=== PATIENT | female | born 1970 | race Caucasian/White ===

== ENCOUNTER 2019-01-29 12:55 | Inpatient (IN) | payer OTHER ==
[~2019-01-29] VITALS: Ht 165.1 cm; Wt 94.8 kg
--- NOTE | 2019-01-29 13:02 | NUR ---
JILL BLANTON FOR SI - PT WAS SPEAKING WITH COWORKER TODAY AND THREATENED SA - CUTTING WRISTS, PT HAS SCRATCH OBRIEN ON HER WRISTS, COWORKER CALLED POLICE, HX OF SA - OD PILLS, DEPRESSION, ANXIETY. 4L BOX OF WINE FOUND AT PTS HOUSE WITH KNIFE. PT STATES SHE DRANK "A LOT OF IT" PT DENIES SI AT THIS TIME, SAYS SHE THINKS ABOUT KILLING HERSELF A LOT AND WOULD "JUST BLEED" BUT WOULD NEVER "ACTUALLY DO IT BECAUSE I HAVE TWO BEAUTIFUL CHILDREN". PT TEARFUL, STATES "I CAN'T DO THIS, I CAN'T STAY HERE, I'M LEAVING", PT EDUCATED ON SI HOLD PROTOCOL. PT SUICIDE RISK ASSESSMENT REQUIRES 1:1 OBS AT THIS TIME, BA 0.18, UDS COLLECTED AND SENT TO LAB
--- NOTE | 2019-01-29 13:15 | NUR ---
CALLED GAMMA OPERATOR'S OFFICE AND REQUESTED A SITTER FOR PATIENT SAFETY.
[2019-01-29 13:25] LABS: BASOPHILS # (AUTO) 0.12 x10^3/uL (0-0.1); BASOPHILS % (AUTO) 2 % (0-1); EOSINOPHILS # (AUTO) 0.04 x10^3/uL (0-0.4); EOSINOPHILS % (AUTO) 1 % (1-7); LYMPHOCYTES # (AUTO) 1.97 x10^3/uL (1-3.4); LYMPHOCYTES % (AUTO) 27 % (22-44); MD NO; MEAN CORPUSCULAR HEMOGLOBIN 32.7 pg (27.0-34.8); MEAN CORPUSCULAR HGB CONC 34.5 g/dL (32.4-35.8); MEAN CORPUSCULAR VOLUME 94.8 fL (80-100); MEAN PLATELET VOLUME 7.7 fL (7.4-10.4); MONOCYTES # (AUTO) 0.64 x10^3/uL (0.2-0.8); MONOCYTES % (AUTO) 9 % (2-9); NEUTROPHILS # (AUTO) 4.59 x10^3/uL (1.8-6.8); NEUTROPHILS % (AUTO) 62 % (42-75); PLATELET COUNT 375 x10^3/uL (130-400); RED BLOOD COUNT 4.82 x10^6/uL (3.82-5.3)
[2019-01-29 13:34] LABS: ANION GAP 8 mmol/L (5-15); CALCIUM 8.8 mg/dL (8.5-10.1); CHLORIDE 105 mmol/L (98-107)
[2019-01-29 13:40] LABS: CREATININE 0.93 mg/dL (0.55-1.02)
[2019-01-29 13:44] LABS: ACETAMINOPHEN < 2 mcg/mL (10-30); SALICYLATE LEVEL < 1.7 mg/dL (2.8-20.0)
[2019-01-29 14:04] LABS: AMPHETAMINE SCREEN, URINE Negative (Negative); BARBITURATE SCREEN, URINE Negative (Negative); BENZODIAZEPINE SCREEN, URINE Negative (Negative); CANNABINOID SCREEN, URINE Positive (Negative); COCAINE SCREEN, URINE Negative (Negative); METHADONE SCREEN, URINE Negative (Negative); OPIATE SCREEN, URINE Negative (Negative)
--- NOTE | 2019-01-29 14:15 | NUR ---
PT IN BED, ALL BELONGINGS SECURED, NAD, SITTER AT BEDSIDE, AWAITING DISPO. WCTM.
--- NOTE | 2019-01-29 15:15 | NUR ---
PT IN GURNEY, TEARFUL, SITTER AT DOORWAY. NAD. PT ON SPO2 MONITOR. AWAITING PT SOBRIETY AND TELEPSYCH EVAL
[2019-01-29] MEDS ORDERED: LORazepam 1MG TABLET ONE ×2 (15:24→18:28)
--- NOTE | 2019-01-29 16:02 | NUR ---
PT IN [facility], TEARFUL, FIDGETY AND REMOVING MONITORS, YELLING TO CALL MOM. OBTAINED PTS PHONE AND PT CALLED MOTHER AND SO. EXPLAINED POC AGAIN TO PT, PT NEED TO HAVE ANANDA OF <0.08 AND TELEPSYCH EVAL. MD TO ORDER ATIVAN PO FOR PT ANXIETY. SITTER AT DOORWAY. RN SPOKE TO PTS MOTHER, PTS MOTHER STATES SHE HAS BEEN CALLING HER IN [place] AND MAKING SUICIDAL THREATS TO HER "ALL DAY" AND STATES "YOU NEED TO KEEP HER, SHE IS AN ALCOHOLIC". EXPLAINED POC TO MOTHER AND NEED FOR TELEPSYCH EVAL FROM MD. MOTHER STATES UNDERSTANDING.
[2019-01-29] MEDS ORDERED: LORazepam 1MG TABLET PO ONE ×2 (16:30→18:30)
--- NOTE | 2019-01-29 17:00 | NUR ---
PT SLEEPING IN [facility], SITTER AT DOORWAY FOR 1:1 SUPERVISION. NAD, ON SPO2 MONITOR WITH SAT 93%. WCTM
--- NOTE | 2019-01-29 17:45 | NUR ---
Sae cr in ED - 01/29/19 at 1746 by AMBER PT WATCHING TV IN BED, SITTER AT DOORWAY. NAD. [place]
--- NOTE | 2019-01-29 17:46 | NUR ---
PT GIVEN DINNER TRAY, PT TEARFUL STILL AND ANXIOUS. STATING SHE WANTS TO LEAVE. SITTER AT DOORWAY, PT 1:1 SUPERVISION. NAD. [place]
--- NOTE | 2019-01-29 18:22 | NUR ---
BREATHALYZER 0.12
--- NOTE | 2019-01-29 18:35 | NUR ---
PT WALKED TO BATHROOM
--- NOTE | 2019-01-29 19:20 | NUR ---
pt sitting on edge of gurney, crying and yelling, "i miss him" and other various statements. sitter at door. pt steady on feet. pt in hospital gown.
[2019-01-29] MEDS ORDERED: ZIPRASIDONE 20 MG INJ IM ONE ×2 (19:54→20:00)
--- NOTE | 2019-01-29 20:03 | NUR ---
pt medicated for anxiety and restlessness with ordered meds. pt placed on pulse ox. will continue to monitor. sitter at door.
--- NOTE | 2019-01-29 21:47 | NUR ---
pt placed on o2 at 2l per n/c for desating to 87% on ra. pt has calmed down and is resting comfortably at this time. will continue to monitor. sitter at door.
--- NOTE | 2019-01-29 22:00 | NUR ---
pt resting calmly in bed, no needs stated at this time. sitter at door.
[2019-01-29] MEDS ORDERED: LORazepam 2 MG/ML, 1ML IVPush ONE (23:30)
[2019-01-29] MEDS ORDERED: SODIUM CHLORIDE 0.9% 1,000ML IVBOLUS ONE (23:30)
[2019-01-29] MEDS ORDERED: LORazepam 2 MG/ML, 1ML ONE (23:47)
[2019-01-30] MEDS ORDERED: METOPROLOL 1 MG/ML, 5ML IVPush ONE (01:00)
--- NOTE | 2019-01-30 01:40 | NUR ---
[facility] CALLED TO SAY THEY WILL NOT HAVE A DOC TO DO CONSULT TILL ABOUT AN HOUR FROM NOW.
--- NOTE | 2019-01-30 01:50 | NUR ---
PT RESTING CALMLY IN GURNEY. PT GIVEN WATER PER PT REQUEST, PIN MACHINE TENDER PLACED ON PT. WILL CONTINUE TO MONITOR.
[2019-01-30] MEDS ORDERED: METOPROLOL 1 MG/ML, 5ML ONE (02:21)
--- NOTE | 2019-01-30 02:27 | NUR ---
ERP CANCELLED TELEPSYCH. PT HR REMAINS ELEVATED. ORDERS BEING PLACED.
[2019-01-30] MEDS ORDERED: PHENOBARBITAL ETOH DETOX PER PHARMACY MC PRN (02:30)
[2019-01-30] MEDS ORDERED: LORazepam 2 MG/ML, 1ML IVPush ONE (02:30)
[2019-01-30] MEDS ORDERED: SODIUM CHLORIDE 0.9% 1,000ML IVBOLUS ONE (02:30)
[2019-01-30] MEDS ORDERED: LORazepam 2 MG/ML, 1ML ONE (02:32)
[2019-01-30] MEDS ORDERED: SODIUM CHLORIDE 0.9% IV ONE ×2 (03:00)
[2019-01-30] MEDS ORDERED: PHENOBARBITAL SODIUM IV ONE ×2 (03:00)
--- NOTE | 2019-01-30 03:35 | NUR ---
ORDERED WITHDRAWL PROTOCOL MED INFUSING. PT RESTING CALMLY IN BED. NO STATED NEEDS AT THIS TIME.
--- NOTE | 2019-01-30 04:45 | NUR ---
PT UP TO BATHROOM VIA WHEELCHAIR AND SITTER ACCOMPANIMENT. PT BACK IN [facility] AT THIS TIME AND BACK ON MONITOR.
--- NOTE | 2019-01-30 05:05 | NUR ---
PT IS RESTING SOMULENTLY. NO NEEDS AT THIS TIME. SITTER AT DOOR. SEE CHARTED VITALS. HR AND BP IMPROVING
--- NOTE | 2019-01-30 06:28 | NUR ---
PT CONTINUES TO REST CALMLY IN BED WITH EYES CLOSED. PT AROUSES EASILY TO VOICE. NO STATED NEEDS AT THIS TIME. SITTER AT DOOR.
--- NOTE | 2019-01-30 06:59 | NUR ---
[facility] calmly sleeping on gurney, NAD with equal chest rise/fall, no needs at this time, sitter in view.
--- NOTE | 2019-01-30 06:59 | NUR ---
BEDSIDE REPORT TO LISA MARTIN. CALLED [facility] TO GIVE REPORT, STATED THEY WILL NOT TAKE REPORT AT THIS TIME DUE TO RAPID RESPONSE BEING CALLED. LISA MARTIN AWARE.
--- NOTE | 2019-01-30 07:56 | NUR ---
cardiac rhythm strip printed and placed on chart.
--- NOTE | 2019-01-30 08:00 | NUR ---
pt laying on gurney mostly sleeping, responds approp to staff, denies detox s/sx with NAD, comfort measures provided, sitter in view.
--- NOTE | 2019-01-30 09:05 | NUR ---
pt ambulated to BR with CGA, back to [facility] & able to doze off easily, responds approp to staff, NAD, comfort measures provided, sitter in view.
[2019-01-30] MEDS ORDERED: ENOXAPARIN 40 MG/0.4 ML ONE (09:17)
[2019-01-30] MEDS: ENOXAPARIN 40 MG/0.4 ML SQ SCH (09:19)
--- NOTE | 2019-01-30 10:05 | NUR ---
pt laying on gurney awake & tearful, states "I need to call work", phone given for contact number, reassurance helpful, responds approp to staff, NAD, comfort meeasures provided, sitter in full view.
[2019-01-30] MEDS: PHENOBARBITAL 20 MG/5 ML ORAL SOL PO SCH ×2 (10:09→20:45)
--- NOTE | 2019-01-30 10:10 | NUR ---
PT GIVEN MEAL TRAY AND MEDICATION.
--- NOTE | 2019-01-30 11:00 | NUR ---
pt continues to lay restlessly on gurney with eyes closed, responds approp to staff, NAD, comfort measures provided, sitter in full view.
[2019-01-30] MEDS: LABETALOL 5 MG/ML SYRINGE IVPush PRN ×2 (11:51→16:24)
--- NOTE | 2019-01-30 11:59 | NUR ---
pt laying on gurney with eyes closed, tearful at times, reassurance helpful, responds approp to staff, NAD, comfort measures provided, sitter in full view. spoke with Dr Alba regarding pt emotional status & pt request for dose of home med for GERD.
[2019-01-30] MEDS: OMEPRAZOLE 20 MG CAPSULE.DR PO SCH (12:00)
--- NOTE | 2019-01-30 12:38 | NUR ---
report given to Guerrero MARTIN
--- NOTE | 2019-01-30 13:57 | NUR ---
PT SLEEPING AT THIS TIME VSS
--- NOTE | 2019-01-30 14:30 | NUR ---
SPOKE WITH DR. QUIÑONEZ TO REEVALUATE PT. POSSIBLE DOWNGRADE
--- NOTE | 2019-01-30 16:15 | NUR ---
cardiac rhythm strip printed and placed on chart
[2019-01-30] MEDS ORDERED: PHENOBARBITAL SODIUM 65 MG/ML, 1ML IVPush ONE (20:00)
[2019-01-30 20:11] VITALS: BP 156/91
[2019-01-30] MEDS ORDERED: DEXMEDETOMIDINE 200 MCG in SODIUM CHLORIDE 0.9% 48 ML IV PRN (20:30)
[2019-01-30] MEDS: GUAIFENESIN/COD200MG-20MG/10ML LIQUID PO PRN (21:48)
[2019-01-30] MEDS: ACETAMINOPHEN 325 MG TABLET PO PRN (21:50)
[2019-01-30] MEDS ORDERED: ALBUTEROL/IPRATROPIUM 2.5MG/0.5MG, 3 ML IPPB PRN (22:30)
[2019-01-31 04:00] VITALS: BP 158/75
[2019-01-31] MEDS: ACETAMINOPHEN 325 MG TABLET PO PRN ×4 (04:38→21:24)
[2019-01-31] MEDS: OMEPRAZOLE 20 MG CAPSULE.DR PO SCH (04:38)
[2019-01-31] MEDS ORDERED: ALBUTEROL/IPRATROPIUM 2.5MG/0.5MG, 3 ML NPPB PRN (07:00)
[2019-01-31] MEDS: GUAIFENESIN/COD200MG-20MG/10ML LIQUID PO PRN ×2 (08:39→21:24)
[2019-01-31] MEDS: ENOXAPARIN 40 MG/0.4 ML SQ SCH (08:40)
[2019-01-31] MEDS: PHENOBARBITAL 20 MG/5 ML ORAL SOL PO SCH (08:40)
[2019-01-31] MEDS: LISINOPRIL 10 MG TABLET PO SCH (09:37)
[2019-01-31] MEDS ORDERED: CHLORDIAZEPOXIDE 25 MG CAPSULE PO ONE (12:30)
[2019-01-31 14:00] VITALS: BP 142/90
[2019-01-31 14:07] LABS: MEAN CORPUSCULAR HEMOGLOBIN 31.8 pg (27.0-34.8); MEAN CORPUSCULAR VOLUME 93.6 fL (80-100); MEAN PLATELET VOLUME 7.8 fL (7.4-10.4); PLATELET COUNT 244 x10^3/uL (130-400); RED BLOOD COUNT 4.61 x10^6/uL (3.82-5.3); RED CELL DISTRIBUTION WIDTH 12.6 % (9.6-15.2)
[2019-01-31 14:14] LABS: CHLORIDE 101 mmol/L (98-107)
[2019-01-31 14:27] LABS: ALANINE AMINOTRANSFERASE 57 U/L (12-78); ALBUMIN 3.2 g/dL (3.4-5.0); ALKALINE PHOSPHATASE 97 U/L (45-117); ANION GAP 7 mmol/L (5-15); BILIRUBIN,TOTAL 1.8 mg/dL (0.2-1.0); CALCIUM 8.5 mg/dL (8.5-10.1); CREATININE 0.88 mg/dL (0.55-1.02); TOTAL PROTEIN 7.3 g/dL (6.4-8.2)
[2019-01-31 15:07] LABS: BASOPHILS # (AUTO) 0.01 x10^3/uL (0-0.1); BASOPHILS % (AUTO) 0 % (0-1); EOSINOPHILS # (AUTO) 0.07 x10^3/uL (0-0.4); EOSINOPHILS % (AUTO) 1 % (1-7); LYMPHOCYTES # (AUTO) 0.59 x10^3/uL (1-3.4); LYMPHOCYTES % (AUTO) 7 % (22-44); MD SCAN; MONOCYTES # (AUTO) 0.27 x10^3/uL (0.2-0.8); MONOCYTES % (AUTO) 3 % (2-9); NEUTROPHILS # (AUTO) 7.22 x10^3/uL (1.8-6.8); NEUTROPHILS % (AUTO) 88 % (42-75)
[2019-01-31] MEDS: LORazepam 1MG TABLET PO PRN ×2 (16:19→21:24)
[2019-01-31 18:50] VITALS: BP 136/81
[2019-01-31] MEDS ORDERED: MAGNESIUM SULFATE PMX 2GM/50ML 50 ML IV ONE (19:00)
[2019-01-31] MEDS: LABETALOL 5 MG/ML SYRINGE IVPush PRN (19:03)
[2019-01-31] MEDS ORDERED: DEXMEDETOMIDINE 200 MCG in SODIUM CHLORIDE 0.9% 48 ML IV PRN (20:30)
[2019-02-01 01:30] VITALS: BP 133/77
[2019-02-01 05:15] LABS: BASOPHILS # (AUTO) 0.17 x10^3/uL (0-0.1); BASOPHILS % (AUTO) 2 % (0-1); EOSINOPHILS # (AUTO) 0.02 x10^3/uL (0-0.4); EOSINOPHILS % (AUTO) 0 % (1-7); LYMPHOCYTES # (AUTO) 1.18 x10^3/uL (1-3.4); LYMPHOCYTES % (AUTO) 15 % (22-44); MD NO; MEAN CORPUSCULAR HEMOGLOBIN 32.4 pg (27.0-34.8); MEAN CORPUSCULAR HGB CONC 34.5 g/dL (32.4-35.8); MEAN PLATELET VOLUME 8.2 fL (7.4-10.4); MONOCYTES # (AUTO) 0.73 x10^3/uL (0.2-0.8); MONOCYTES % (AUTO) 9 % (2-9); NEUTROPHILS # (AUTO) 5.76 x10^3/uL (1.8-6.8); NEUTROPHILS % (AUTO) 73 % (42-75); PLATELET COUNT 254 x10^3/uL (130-400); RED BLOOD COUNT 4.66 x10^6/uL (3.82-5.3); RED CELL DISTRIBUTION WIDTH 12.7 % (9.6-15.2)
[2019-02-01 05:24] LABS: ANION GAP 8 mmol/L (5-15); CALCIUM 8.4 mg/dL (8.5-10.1); CHLORIDE 98 mmol/L (98-107); CREATININE 0.91 mg/dL (0.55-1.02)
[2019-02-01] MEDS: LORazepam 1MG TABLET PO PRN ×2 (05:26→19:57)
[2019-02-01] MEDS: OMEPRAZOLE 20 MG CAPSULE.DR PO SCH (05:26)
[2019-02-01] MEDS: LABETALOL 5 MG/ML SYRINGE IVPush PRN (05:27)
[2019-02-01 08:03] VITALS: BP 123/87
[2019-02-01] MEDS: ACETAMINOPHEN 325 MG TABLET PO PRN ×2 (08:42→17:22)
[2019-02-01] MEDS: LISINOPRIL 10 MG TABLET PO SCH (08:43)
[2019-02-01] MEDS: GUAIFENESIN/COD200MG-20MG/10ML LIQUID PO PRN ×2 (08:45→19:57)
[2019-02-01] MEDS: ENOXAPARIN 40 MG/0.4 ML SQ SCH (08:46)
[2019-02-01] MEDS ORDERED: PHENOBARBITAL 20 MG/5 ML ORAL SOL PO SCH (10:00)
[2019-02-01 11:24] LABS: RAPID INFLUENZA A Negative (Negative); RAPID INFLUENZA B Negative (Negative)
[2019-02-01] MEDS: AMPICILLIN/SULBACTAM 3 GM in SODIUM CHLORIDE 0.9% 100 ML IV SCH ×2 (11:40→18:11)
[2019-02-01 13:46] VITALS: BP 128/79
[2019-02-01 19:14] VITALS: BP 117/77
[2019-02-02 01:12] VITALS: BP 127/82
[2019-02-02] MEDS: AMPICILLIN/SULBACTAM 3 GM in SODIUM CHLORIDE 0.9% 100 ML IV SCH (02:26)
[2019-02-02] MEDS: OMEPRAZOLE 20 MG CAPSULE.DR PO SCH (05:53)
[2019-02-02 08:09] VITALS: BP 129/79
[2019-02-02] MEDS: LISINOPRIL 10 MG TABLET PO SCH (09:12)
[2019-02-02] MEDS: ENOXAPARIN 40 MG/0.4 ML SQ SCH (09:12)
[2019-02-02] MEDS ORDERED: SODIUM CHLORIDE 0.9% 1,000 ML IV SCH (10:00)
[2019-02-02] MEDS ORDERED: ACETAMINOPHEN 325 MG TABLET PO PRN (10:00)
[2019-02-02] MEDS ORDERED: LISI-167 PO (12:18)
[2019-02-02] MEDS ORDERED: ACID1TAB7 PO (12:18)
[2019-02-02 13:35] VITALS: BP 137/118
[2019-02-02 14:01] VITALS: BP 123/92
[2019-02-02] MEDS ORDERED: LACTOBACILLUS CHEW TABLET PO SCH (16:00)
[2019-02-03] MEDS ORDERED: PHENOBARBITAL 20 MG/5 ML ORAL SOL PO SCH (10:00)
[2019-02-04] MEDS ORDERED: PHENOBARBITAL 20 MG/5 ML ORAL SOL PO SCH (09:30)
== END 2019-02-02 14:34 | disposition home or self-care (01) | DRG 177 ==
LOC: ED 14:11 → EDIP 01-30 02:34 → CCU 01-30 18:53 → ICU 01-30 20:42 → 4EST 01-31 15:13 → DCLOUNGE 02-02 14:25
PROVIDERS: ADMIT Family Medicine; ATTEND Family Medicine
DX: J15.6 Pneumonia due to other Gram-negative bacteria (principal); J96.01 Acute respiratory failure with hypoxia; F10.231 Alcohol dependence with withdrawal delirium; E87.1 Hypo-osmolality and hyponatremia; R45.851 Suicidal ideations; J15.9 Unspecified bacterial pneumonia; K70.10 Alcoholic hepatitis without ascites; E83.42 Hypomagnesemia; I10 Essential (primary) hypertension; F17.200 Nicotine dependence, unspecified, uncomplicated; F12.90 Cannabis use, unspecified, uncomplicated; Z79.01 Long term (current) use of anticoagulants; Z79.899 Other long term (current) drug therapy
CPT/HCPCS: 36415; 87400; 99285; J7620; 71045; 71046; 80048; 80053; 80307; 80329; 82040; 83735; 84703; 85025; 87070; 87081; 87205; 93005; 94640; G0378; J0295; J1650; J2560; J3486; G0480; J2060; J3475; J7030

== ENCOUNTER 2019-11-15 06:53 | Emergency (ER) | payer SELFPAY ==
[~2019-11-15] VITALS: Ht 165.1 cm; Wt 91.0 kg
[~2019-11-15 06:53] MED LIST: ACID1TAB7 PO; FOLI-17 PO; LISI-167 PO; MULT-484 PO; THIA100T67 PO
[2019-11-15] MEDS ORDERED: LORazepam 1MG TABLET ONE (07:08)
[2019-11-15] MEDS ORDERED: LORazepam 2 MG/ML, 1ML ONE ×2 (07:10→07:50)
[2019-11-15] MEDS: LORazepam 2 MG/ML, 1ML IVPush PRN ×2 (07:23→07:52)
[2019-11-15 07:37] LABS: BASOPHILS # (AUTO) 0.03 x10^3/uL (0-0.1); BASOPHILS % (AUTO) 0 % (0-1); EOSINOPHILS # (AUTO) 0.11 x10^3/uL (0-0.4); EOSINOPHILS % (AUTO) 1 % (1-7); LYMPHOCYTES # (AUTO) 1.52 x10^3/uL (1-3.4); LYMPHOCYTES % (AUTO) 14 % (22-44); MD NO; MEAN CORPUSCULAR HEMOGLOBIN 33.5 pg (27.0-34.8); MEAN CORPUSCULAR HGB CONC 33.5 g/dL (32.4-35.8); MEAN CORPUSCULAR VOLUME 99.8 fL (80-100); MEAN PLATELET VOLUME 8.7 fL (7.4-10.4); MONOCYTES # (AUTO) 0.52 x10^3/uL (0.2-0.8); MONOCYTES % (AUTO) 5 % (2-9); NEUTROPHILS # (AUTO) 8.97 x10^3/uL (1.8-6.8); NEUTROPHILS % (AUTO) 81 % (42-75); PLATELET COUNT 346 x10^3/uL (130-400); RED BLOOD COUNT 5.03 x10^6/uL (3.82-5.3); RED CELL DISTRIBUTION WIDTH 13.1 % (9.6-15.2)
[2019-11-15 07:44] LABS: ALANINE AMINOTRANSFERASE 101 U/L (12-78); ALBUMIN 3.7 g/dL (3.4-5.0); ANION GAP 9 mmol/L (5-15); CALCIUM 9.5 mg/dL (8.5-10.1); CHLORIDE 100 mmol/L (98-107); CREATININE 1.08 mg/dL (0.55-1.02)
[2019-11-15 07:46] LABS: ALKALINE PHOSPHATASE 138 U/L (45-117); BILIRUBIN,TOTAL 2.5 mg/dL (0.2-1.0); TOTAL PROTEIN 8.4 g/dL (6.4-8.2)
--- NOTE | 2019-11-15 07:58 | NUR ---
DR VILLALBA AT BEDSIDE TO REASSESS AND DISCUSS POC
[2019-11-15 08:35] VITALS: BP 172/116
== END 2019-11-15 08:53 | disposition home or self-care (01) ==
LOC: ED 08:27
DX: F41.1 Generalized anxiety disorder (principal); F10.220 Alcohol dependence with intoxication, uncomplicated; Y90.0 Blood alcohol level of less than 20 mg/100 ml; R06.4 Hyperventilation; Z87.891 Personal history of nicotine dependence
CPT/HCPCS: 36415; 80053; 83690; 85025; 96374; 99283; J2060